=== PATIENT | male | born 1980 | race Caucasian/White ===

== ENCOUNTER 2016-05-31 22:37 | Emergency (ER) | payer SELFPAY ==
[~2016-05-31 22:37] MED LIST: ALBUTEROL17 GM; KLONOPIN PO
== END 2016-06-01 00:51 | disposition home or self-care (01) ==
LOC: SED 22:37
DX: G89.29 Other chronic pain (principal); M54.5 Low back pain; R03.0 Elevated blood-pressure reading, without diagnosis of hypertension; J45.909 Unspecified asthma, uncomplicated; Z86.73 Personal history of transient ischemic attack (TIA), and cerebral infarction without residual deficits; F17.210 Nicotine dependence, cigarettes, uncomplicated
CPT/HCPCS: 96372; 99283; J1885; J2360